=== PATIENT | female | born 1965 ===

== ENCOUNTER 2021-09-09 08:47 | Day surgery (SDC) | payer OTHER ==
[~2021-09-09 08:47] MED LIST: ATACAND HCT 321 EAC1 PO
== END 2021-09-09 16:40 | disposition home or self-care (01) ==
LOC: CIR.AMB 08:47
PROVIDERS: ATTEND Specialist
DX: N72 Inflammatory disease of cervix uteri (principal); N84.0 Polyp of corpus uteri; Z20.822 Contact with and (suspected) exposure to COVID-19; Z91.013 Allergy to seafood; I10 Essential (primary) hypertension; J45.909 Unspecified asthma, uncomplicated; M19.90 Unspecified osteoarthritis, unspecified site; M79.7 Fibromyalgia; M32.9 Systemic lupus erythematosus, unspecified; E66.01 Morbid (severe) obesity due to excess calories

== ENCOUNTER 2021-10-09 11:45 | Inpatient (IN) | payer OTHER ==
[~2021-10-09] VITALS: Ht 154.9 cm; Wt 106.1 kg
[2021-10-09] MEDS ORDERED: ELAVIL PO (14:35)
[2021-10-09] MEDS ORDERED: OMEPRAZOLE-BIC1 EAC1 PO (14:35)
[2021-10-14] MEDS ORDERED: DICLOFENAC POTA50 MG (08:03)
[2021-10-14] MEDS ORDERED: MEGESTROL ACETA40 MG (08:03)
[2021-10-14] MEDS ORDERED: AMITRIPTYLINE H50 MG (08:03)
== END 2021-10-17 13:24 | disposition home or self-care (01) | DRG 743 ==
LOC: O/R 10-14 06:00 → SURG-SUITE 10-14 06:00 → SURH 10-14 11:45 → SURG-SUITE 10-17 13:24
PROVIDERS: ADMIT Specialist; ATTEND Specialist
PROC: 0UT70ZZ Resection of Bilateral Fallopian Tubes, Open Approach (ICD-10-PCS; 2021-10-14)
PROC: 0UT20ZZ Resection of Bilateral Ovaries, Open Approach (ICD-10-PCS; 2021-10-14)
PROC: 0UT90ZZ Resection of Uterus, Open Approach (ICD-10-PCS; principal; 2021-10-14 18:30)
DX: D25.1 Intramural leiomyoma of uterus (principal); N72 Inflammatory disease of cervix uteri; N80.0 Endometriosis of uterus; N83.291 Other ovarian cyst, right side; N83.292 Other ovarian cyst, left side; Z20.822 Contact with and (suspected) exposure to COVID-19